=== PATIENT | female | born 1950 | race African-American/Black ===

== ENCOUNTER 2019-11-11 12:02 | Inpatient (IN) | payer OTHER ==
[2019-10-29 09:56] VITALS: BMI 37.0
[2019-12-02] MEDS ORDERED: CELECOXIB 200 MG CAPSULE PO ONE (06:20)
[2019-12-02] MEDS ORDERED: CEFAZOLIN 3 GM in DEXTROSE 5%-WATER - 100 ML IVPB ONE (06:20)
[2019-12-02] MEDS ORDERED: VANCOMYCIN 1,000 MG VIAL (RESTRICTED TO ID ONLY) ONE (07:12)
[2019-12-02] MEDS ORDERED: ceFAZolin SODIUM 1 GM VIAL ONE ×4 (07:12→23:31)
[2019-12-02] MEDS ORDERED: EPHEDRINE SULFATE/0.9% NACL/PF 50 MG/10 ML SYRINGE NR ONE (07:15)
[2019-12-02] MEDS ORDERED: SODIUM CHLORIDE 0.9% P/F 10 ML VIAL IJ ONE ×2 (07:15→07:16)
[2019-12-02] MEDS ORDERED: LIDOCAINE HCL/PF 2% SDV 5ML VIAL ONE (07:15)
[2019-12-02] MEDS ORDERED: PROPOFOL 20 ML ONE ×2 (07:15)
[2019-12-02] MEDS ORDERED: SUCCINYLCHOLINE CHLORIDE 200 MG/10 ML SYRINGE ONE (07:15)
[2019-12-02] MEDS ORDERED: MIDAZOLAM HCL 2 MG/2 ML SINGLE DOSE VIAL ONE ×2 (07:16)
[2019-12-02] MEDS ORDERED: ALBUTEROL SO4 HFA INHALER IH PRN (07:54)
[2019-12-02] MEDS ORDERED: MAGNESIUM HYDROX 2400MG/30ML ORAL SUSPENSION 30 ML CUP PO PRN (07:54)
[2019-12-02] MEDS ORDERED: MAG HYDROX/AL HYDROX/SIMETH 30 ML UNIT-DOSE CUP PO PRN (07:54)
--- NOTE | 2019-12-02 07:56 | HP ---
Satellite [facility] - Chief Complaint Chief Complaint: right knee pain - Past Medical History Allergies/Adverse Reactions: Allergies Allergy/AdvReac Type Severity Reaction Status Date / Time shellfish derived Allergy Severe Hives Verified 10/29/19 10:02 cyclobenzaprine AdvReac Severe PARANOIA Verified 10/29/19 10:02 [From Flexeril] - Current Medications Current Medications: Home Medications Medication Instructions Recorded Aspirin [ASA -] 81 mg PO DAILY 03/17/12 Rosuvastatin Calcium [Crestor] 20 mg PO HS 03/17/12 Albuterol Sulfate Inhaler - 1 - 2 inh PO QID PRN 10/29/19 [Ventolin Hfa Inhaler -] Cholecalciferol (Vitamin D3) 2,000 unit PO HS 10/29/19 [Vitamin D3] Metoprolol Succinate 50 mg PO DAILY 10/29/19 Quinapril HCl [Accupril] 5 mg PO DAILY 10/29/19 Ranitidine HCl 150 mg PO HS 10/29/19 Satellite Physical Exam - Physical Examination Vital Signs: Vital Signs Period Temp Pulse Resp BP Sys/David Pulse Ox Last 24 Hr 98.8 F 79 18 135/87 95 General Appearance: Well Nourished, Well Developed, Alert & Oriented x3 ENT: Clear Lung: Normal air movement Extremities: Other (right knee- + swelling, + ttp, decr rom , nvi) Neurological: Intact, Alert, Oriented Satellite Impression/Plan - Impression/Plan Impression: right knee djd Operative Procedure: right nalini tkr Date to be Performed: 12/02/19
[2019-12-02] MEDS ORDERED: TRANEXAMIC ACID 1000 MG/10 ML VIAL IVPUSH ONE (08:00)
[2019-12-02] MEDS ORDERED: LACTATED RINGERS SOLUTION 1,000 ML IV SCH (08:00)
[2019-12-02] MEDS ORDERED: oxyCODONE HCL 5 MG TABLET PO PRN ×2 (08:20)
[2019-12-02] MEDS ORDERED: ONDANSETRON 4 MG/2 ML VIAL IVPUSH PRN (08:20)
[2019-12-02] MEDS ORDERED: traMADol HCL 50 MG TABLET PO PRN (08:20)
[2019-12-02] MEDS ORDERED: VANCOMYCIN 1,000 MG VIAL (RESTRICTED TO ID ONLY) IVPB ONE (09:44)
--- NOTE | 2019-12-02 09:51 | OP ---
Operative Note - Note: Operative Date: 12/02/19 (kierra) Pre-Operative Diagnosis: right knee djd Operation: right nalini tkr Post-Operative Diagnosis: Same as Pre-op Surgeon: Keyon Siddiqui Business Manager [employer]: [employer] Anesthesia: Spinal, Local Specimens Removed: bone fragments Estimated Blood Loss (mls): 150
[2019-12-02] MEDS: ACETAMINOPHEN 1000 MG/100 ML VIAL (NON FORMULARY) IVPB ONE ×2 (10:45→17:37)
[2019-12-02] MEDS ORDERED: ACETAMINOPHEN INJECTION 100 ML IVPB ONE (10:48)
[2019-12-02] MEDS: ONDANSETRON 4 MG/2 ML VIAL IVPUSH PRN (11:20)
--- NOTE | 2019-12-02 17:11 | SPEC ---
DATE OF OPERATION: 12/02/2019 PREOPERATIVE DIAGNOSIS: Degenerative joint disease, right knee. POSTOPERATIVE DIAGNOSIS: Degenerative joint disease, right knee. PROCEDURE: Right total knee replacement with robotic-assisted navigation (Makoplasty). SURGICAL ATTENDING: Keyon Siddiqui MD. OBGYN HOSPITALIST PHYSICIAN: CECI Gorman. ANESTHESIA: Regional and spinal. CLOSURE: A Triathlon knee system with a 5 femur, 4 tibia, 9 polyethylene, 32 patella, number 1 Vicryl fascia, 0 and 2-0 subcutaneous, 3-0 Monocryl subcuticular with skin glue for skin, 4-0 undyed Vicryl for pin site. ESTIMATED BLOOD LOSS: Less than 100 mL. COMPLICATIONS: None. CONDITION: To recovery room in stable condition. DESCRIPTION OF OPERATIVE PROCEDURE: Patient was taken to the operating room on December 02, 2019. Regional and general anesthesia was administered by the anesthesiologist. IV Kefzol and TXA were administered by the anesthesiologist. Well-padded pneumatic tourniquet was placed on the proximal thigh. The right lower extremity was prepped and draped in the usual sterile fashion. The leg was exsanguinated with an Esmarch bandage, and tourniquet was inflated to 275 mmHg. A 12 to 15-cm longitudinal midline incision was incised while centered over the patella. The dissection was carried down to the level of the extensor mechanism with sufficient flaps made to adequately perform the procedure. A medial parapatellar arthrotomy was then performed. We made a cuff of tissue on the patella for later closure. The patella was inverted, the knee was flexed up. The fat pad was excised. The subperiosteal dissection was on the anteromedial proximal tibia around towards the direction of the MCL. The ACL and the PCL were transected and debrided. The meniscal remnants of the medial and lateral meniscus were debrided and removed. This allowed the knee to be able to "be brought forward." The checkpoints were malleted into the tibia and into the femur. Two threaded pins were drilled anteroposteriorly proximal to the knee through the previous incision, through the anterior cortex, then just engaging the posterior cortex. To these pins was assembled the femoral navigation array. One handbreadth below the tibial tubercle, 2 stab incisions were used to drill 2 threaded pins in parallel fashion into the tibia, again through the anterior cortex and just engaging the posterior cortex. To these pins was fastened the tibial arrays. The knee was then registered with the navigation device with center of rotation of the hip, medial and lateral malleoli, both checkpoints, and multiple points on both the femur and the tibia to ensure excellent registration. The navigation device was directed off the "top of the bubbles" on both the femur and the tibia. The navigation passed within less than 0.5 mm to plan. The knee was then thoroughly inspected to remove all osteophytes both medially, laterally, and on the femur and the tibia, and whatever osteophytes were available for dissection. The knee was then taken to extension and to flexion, and stressed in both varus and valgus to assess flexion gaps. The virtual position of the components on the navigation device were then manipulated to optimize the position and to ensure equal gaps in both flexion and extension, and both medially and laterally. The robot was then brought into the field and was registered. The cuts were then made both on the femur and on the tibia as to plan. All osteophytes posteriorly were then removed as well. The gaps were then measured again in flexion and extension to be equal in both flexion and extension and medial and laterally. The femoral notch was then made, as we were doing a posterior stabilizing component, with the appropriate sized box. Trial reduction of the femur achieved excellent [id number] fit. A tibial baseplate of appropriate polyethylene thickness was "floated in the knee." It was ensured to be in the excellent position by navigation devices and was pinned in place. The knee was taken through a range of motion, and found to have excellent stability throughout flexion and extension. The patella was calibrated for thickness and osteotomized down to the appropriate level. The appropriate lollipop was used to drill the lugholes in the patella and the trial button was applied. The knee was taken through a range of motion and found to have excellent tracking of the patella, and patella from full extension to full flexion. Trial components were removed, the keel was punched and drilled, and a sclerotic bone on the tibia was drilled to help with cement interdigitation. The knee was thoroughly irrigated with the pulse antibiotic surplus property disposal agent. The real components were then cemented in using monitored arrangement cement techniques with antibiotic cement, and pressurization and extension. After the cement was hardened, the knee was thoroughly inspected to remove any extra cement. The real polyethylene component was then clipped into place. Range of motion, stability, and tracking were as described earlier. The checkpoints and the pins were removed. The knee was thoroughly irrigated with antibiotic irrigation. Vancomycin powder was placed into the knee for antibiotic prophylaxis. The medial parapatellar arthrotomy was then closed using number 1 Vicryl interrupted suture. After closure of the deep layer, the knee was taken through a range of motion, and found to have excellent stability of the patella with no dislocation and no undue tension on the repair. The subcutaneous was pulse antibiotic irrigated, and was then closed with 2-0 Vicryl, 3-0 Monocryl subcuticular with the skin glue for the skin. The distal tibial pin site was irrigated thoroughly as well and then closed with 4-0 undyed Vicryl. A sterile Aquacel dressing was applied, followed by a Whitfield dressing. Tourniquet was deflated. Total tourniquet time was approximately 75 minutes. No complications. Patient was awakened from anesthesia and transferred to recovery room in stable condition. Postoperative x-rays revealed excellent position of the components. Alcon [id number]
[2019-12-02] MEDS: LACTATED RINGERS SOLUTION 1,000 ML IV SCH (17:37)
[2019-12-02] MEDS: QUINAPRIL HCL 5 MG TABLET (FP) PO SCH (17:37)
[2019-12-02] MEDS: oxyCODONE HCL 10 MG SUSTAINED ACTING TABLET PO SCH ×2 (17:38→21:37)
[2019-12-02] MEDS: SENNOSIDES/DOCUSATE COMBO (SENNA PLUS) TABLET (UD) PO SCH ×2 (17:38→21:37)
[2019-12-02] MEDS: MULTIVITAMINS (DAILY MVI) TABLET (FP) PO SCH (17:38)
[2019-12-02] MEDS: PANTOPRAZOLE 40 MG TABLET PO SCH (17:38)
[2019-12-02] MEDS ORDERED: DEXTROSE 5%-WATER 100 ML IVPB ONE ×2 (17:40→23:31)
[2019-12-02] MEDS: CEFAZOLIN 3 GM in DEXTROSE 5%-WATER 100 ML IVPB SCH ×2 (17:45→23:36)
[2019-12-02] MEDS: ACETAMINOPHEN 325 MG TABLET (FP) PO SCH ×2 (18:32→23:37)
[2019-12-02] MEDS: ROSUVASTATIN CA 20 MG TABLET (FP) PO SCH (21:37)
[2019-12-02] MEDS ORDERED: PATIENT'S OWN MEDICATION (NON-FORMULARY) (Ranitidine Hcl [Ranitidine Hcl] 150 MG) PO SCH (22:00)
[2019-12-03] MEDS: ACETAMINOPHEN 325 MG TABLET (FP) PO SCH ×4 (06:52→23:05)
[2019-12-03 08:04] LABS: HEMATOCRIT 37.2 % (32.4-45.2); MCH 31.4 pg (25.7-33.7); MCHC 32.2 g/dl (32.0-36.0); MEAN CELL VOLUME 97.5 fl (80-96); MEAN PLT VOLUME 7.8 fl (7.5-11.1); PLATELET COUNT 208 K/MM3 (134-434); RBC 3.82 M/mm3 (3.60-5.2); RDW 14.1 % (11.6-15.6); WHITE BLOOD COUNT 8.9 K/mm3 (4.0-10.8)
[2019-12-03] MEDS: ASPIRIN 325 MG TABLET PO SCH (08:37)
[2019-12-03] MEDS: LACTATED RINGERS SOLUTION 1,000 ML IV SCH (09:21)
[2019-12-03] MEDS: MULTIVITAMINS (DAILY MVI) TABLET (FP) PO SCH (09:22)
[2019-12-03] MEDS: PANTOPRAZOLE 40 MG TABLET PO SCH (09:22)
[2019-12-03] MEDS: QUINAPRIL HCL 5 MG TABLET (FP) PO SCH (09:22)
[2019-12-03] MEDS: oxyCODONE HCL 10 MG SUSTAINED ACTING TABLET PO SCH ×2 (09:23→22:54)
[2019-12-03] MEDS: SENNOSIDES/DOCUSATE COMBO (SENNA PLUS) TABLET (UD) PO SCH ×2 (09:23→22:55)
--- NOTE | 2019-12-03 09:52 | PN ---
Progress Note (short form) - Note Progress Note: Ortho Pt seen and examined s/p right nalini tkr pod #1 Selected Entries 12/03/19 09:20 Temperature 98.9 F Pulse Rate 83 Respiratory 18 Rate Blood Pressure 108/65 Laboratory Tests 12/03/19 07:22 WBC 8.9 Hgb 12.0 Hct 37.2 Plt Count 208 dressing c/d/i, rom 0-40, calf soft, nt nvi a/p PT dvt ppx pain control d/c home today f/u in 1 week
--- NOTE | 2019-12-03 11:42 | PN ---
Progress Note (short form) - Note Progress Note: 69F POD1 s/p R TKR under spinal anesthetic with peripheral nerve blocks. PT states that pain is well controlled and reports no anesthetic complications. AVSS. Continue current regimen.
[2019-12-03] MEDS: ONDANSETRON 4 MG/2 ML VIAL IVPUSH PRN (14:37)
[2019-12-03] MEDS: ROSUVASTATIN CA 20 MG TABLET (FP) PO SCH (22:55)
[2019-12-04] MEDS: ACETAMINOPHEN 325 MG TABLET (FP) PO SCH (05:41)
[2019-12-04 08:06] LABS: HEMATOCRIT 34.2 % (32.4-45.2); HEMOGLOBIN 11.1 GM/dl (10.7-15.3); MCH 31.5 pg (25.7-33.7); MCHC 32.6 g/dl (32.0-36.0); MEAN CELL VOLUME 96.6 fl (80-96); MEAN PLT VOLUME 7.8 fl (7.5-11.1); PLATELET COUNT 198 K/MM3 (134-434); RBC 3.54 M/mm3 (3.60-5.2); RDW 14.2 % (11.6-15.6); WHITE BLOOD COUNT 9.8 K/mm3 (4.0-10.8)
--- NOTE | 2019-12-04 08:10 | PN ---
Progress Note (short form) - Note Progress Note: Ortho Pt seen and examined s/p right nalini tkr pod #2. No complaints Selected Entries 12/04/19 06:33 Temperature 98.6 F Pulse Rate 118 H Respiratory 18 Rate Blood Pressure 103/61 Laboratory Tests 12/04/19 07:19 WBC Pending Hgb Pending Hct Pending Plt Count Pending dressing c/d/i, rom 0-50, calf soft, nt nvi a/p PT dvt ppx pain control d/c home today f/u in 1 week
--- NOTE | 2019-12-04 08:11 | DS ---
Physical Examination Vital Signs: Vital Signs Temperature 98.6 F 12/04/19 06:33 Pulse Rate 118 H 12/04/19 06:33 Respiratory Rate 18 12/04/19 06:33 Blood Pressure 103/61 12/04/19 06:33 O2 Sat by Pulse Oximetry (%) 97 12/04/19 07:02 Discharge Summary Problems reviewed: Yes Reason For Visit: OSTEOARTHRITIS Procedures: Principal: right tkr Hospital Course: admitted for elective right nalini tkr, post-op per protocol, stable for d/c Condition: Good - Instructions Diet, Activity, Other Instructions: Post-op Instructions-Total Knee Replacement Call the office for a follow-up appointment in 1 week - [phone] Aspirin 325mg daily for 6 weeks. Pain medication was sent into your pharmacy. Apply Graduated Compression Stockings (TEDs) to both lower extremities- remove daily for hygiene ONLY Apply Sequential Compression Device (SCDs) to both Lower extremities remove for PT and hygiene ONLY Apply cold packs to affected area for 15 minutes every 2 hours. Physical Therapist will come to your home for the first 5 days. You will be set up with outpatient PT at your first post-operative visit. Patient may ambulate as tolerated-encourage self care (at least every 2-3 hours while awake) with walker or cane Maintain Aquacel (waterproof) dressing to operative wound (will be removed by surgeon at first office visit) Shower with Aquacel dressing in place-if Aquacel integrity compromised, remove and apply dry sterile dressing and notify Orthopedist. DO NOT SHOWER unless Orthopedists approves without Aquacel dressing CONTACT THE OFFICE FOR ANY CHANGE IN YOUR CONDITION (for example-fever greater than 102 degrees, excessive bleeding from operative site, purulent drainage, severe swelling or pain) GO TO THE EMERGENCY ROOM IF THERE IS A M EDICAL EMERGENCY Knee Precautions: * Keep a rolled towel under affected heel while in bed or chair (to keep knee in extension) * Keep affected leg elevated except during mealtimes * DO NOT PLACE PILLOW UNDER AFFECTED KNEE * If you have any questions, please do not hesitate to call the office - [phone]. Referrals: Keyon Siddiqui MD [Staff Physician] - Disposition: VNS/HOME HEALTH CARE - Home Medications Comprehensive Discharge Medication List: Ambulatory Orders Aspirin [ASA -] 81 mg PO DAILY 03/17/12 Rosuvastatin Calcium [Crestor] 20 mg PO HS 03/17/12 Albuterol Sulfate Inhaler - [Ventolin HFA Inhaler -] 1 - 2 inh PO QID PRN 10/29/19 Cholecalciferol (Vitamin D3) [Vitamin D3] 2,000 unit PO HS 10/29/19 Metoprolol Succinate 50 mg PO DAILY 10/29/19 Quinapril HCl [Accupril -] 5 mg PO DAILY 10/29/19 Ranitidine HCl 150 mg PO HS 10/29/19 Aspirin [ASA -] 325 mg PO DAILY@0800 tablet 12/02/19 Oxycodone HCl/Acetaminophen [Percocet 5-325 mg Tablet -] 1 - 2 tab PO Q6H #50 tab MDD 8 12/02/19
[2019-12-04] MEDS: ASPIRIN 325 MG TABLET PO SCH (08:16)
[2019-12-04] MEDS: oxyCODONE HCL 10 MG SUSTAINED ACTING TABLET PO SCH (09:04)
[2019-12-04] MEDS: QUINAPRIL HCL 5 MG TABLET (FP) PO SCH (09:04)
[2019-12-04] MEDS: PANTOPRAZOLE 40 MG TABLET PO SCH (09:05)
[2019-12-04] MEDS: SENNOSIDES/DOCUSATE COMBO (SENNA PLUS) TABLET (UD) PO SCH (09:05)
[2019-12-04] MEDS: MULTIVITAMINS (DAILY MVI) TABLET (FP) PO SCH (09:05)
[2019-12-04 09:41] VITALS: BP 96/54; PULSE 97; TEMP 98.9
--- NOTE | 2019-12-08 17:28 | PATH ---
Surgical Pathology Report Patient Name: SEVEN CUELLAR Med. Rec. #: [id number] /Age/Gender: 1950 (Age: 69) / F Account: [id number] Location: [facility] Taken: 12/02/2019 Received: 12/02/2019 Reported: 12/08/2019 Physicians: Keyon Siddiqui M.D. Specimen(s) Received RIGHT KNEE BONES Clinical History Osteoarthritis right knee Final Diagnosis KNEE BONES, RIGHT, TOTAL KNEE REPLACEMENT: DEGENERATIVE JOINT DISEASE. Electronically Signed Antonia Aguirre M.D. Gross Description Received in formalin labeled "right knee bones," is a 12.5 x 11.0 x 2.0 cm aggregate of baldwin-yellow, irregular portions of bone and soft tissue, consistent with knee bones. The articular surfaces are baldwin-brown and diffusely granular. The underlying trabecular bone is yellow and hard. No areas of eburnation are identified. Pillowcase Maker sections are submitted in one cassette, following decalcification. 12/04/2019 [facility]12/04/2019
== END 2019-12-04 11:26 | disposition home health service (06) | DRG 470 ==
LOC: FM/S 12-02 06:06
PROVIDERS: ADMIT Orthopaedic Surgery; ATTEND Orthopaedic Surgery
PROC: 8E0Y0CZ Robotic Assisted Procedure of Lower Extremity, Open Approach (ICD-10-PCS; 2019-12-02)
PROC: 0SRC0J9 Replacement of Right Knee Joint with Synthetic Substitute, Cemented, Open Approach (ICD-10-PCS; principal; 2019-12-02 08:28)
DX: M17.11 Unilateral primary osteoarthritis, right knee (principal)
CPT/HCPCS: 36415; 73560-TC-RT-FY; 85027; 88304-TC; 88311-TC; 94760; 97010-GP; 97116-GP; 97163-GP; J0131

== ENCOUNTER 2021-09-06 09:31 | Emergency (ER) | payer OTHER ==
[2021-09-06 09:36] VITALS: BP 160/83; PULSE 68; TEMP 98.1; BMI 36.3
[2021-09-06] MEDS ORDERED: LIDOCAINE 5% TOPICAL PATCH TP ONE (10:27)
[2021-09-06] MEDS ORDERED: ACETAMINOPHEN 1000 MG/100 ML BAG IVPB ONE (10:27)
[2021-09-06] MEDS ORDERED: ACETAMINOPHEN INJECTION 100 ML IVPB ONE (11:43)
[2021-09-06] MEDS ORDERED: LIDOCAINE 5% TOPICAL PATCH ONE (11:44)
[2021-09-06 12:29] LABS: BASO % 0.6 % (0-2.0); EOS % 2.9 % (0-4.5); HEMATOCRIT 37.1 % (32.4-45.2); HEMOGLOBIN 12.4 GM/dL (10.7-15.3); LYMPH % 44.3 % (8-40); MCH 30.7 pg (25.7-33.7); MCHC 33.5 g/dl (32.0-36.0); MEAN CELL VOLUME 91.6 fl (80-96); MEAN PLT VOLUME 7.2 fl (7.5-11.1); MONO % 9.4 % (3.8-10.2); NEUT % 42.8 % (42.8-82.8); PLATELET COUNT 232 10^3/uL (134-434); RBC 4.05 M/mm3 (3.60-5.2); RDW 14.1 % (11.6-15.6); WHITE BLOOD COUNT 5.9 K/mm3 (4.0-10.0)
[2021-09-06 12:47] LABS: ACTIVATED PTT 31.9 SECONDS (25.2-36.5); INR 1.03 (0.83-1.09); PROTHROMBIN TIME (PATIENT) 11.9 SEC (9.7-13.0)
[2021-09-06 12:54] LABS: CALCIUM 8.9 mg/dL (8.5-10.1)
[2021-09-06 12:55] LABS: ALBUMIN 3.7 g/dl (3.4-5.0); BLOOD UREA NITROGEN 15.8 mg/dL (7-18)
[2021-09-06 12:58] LABS: CREATININE 1.1 mg/dL (0.55-1.3)
[2021-09-06 12:59] LABS: BILIRUBIN,TOTAL 0.3 mg/dL (0.2-1); TOT PROT 7.6 g/dl (6.4-8.2)
[2021-09-06] MEDS ORDERED: LIDOCAINE PATCH REMOVAL MC SCH (22:00)
== END 2021-09-06 16:40 | disposition home or self-care (01) ==
LOC: JER 09:31
PROC: 3E0333Z Introduction of Anti-inflammatory into Peripheral Vein, Percutaneous Approach (ICD-10-PCS; principal; 2021-09-06)
DX: M54.6 Pain in thoracic spine (principal); I10 Essential (primary) hypertension
CPT/HCPCS: 36415; 71045-TC-FY; 80053; 84484; 85025; 85610; 85730; 93005; 93010; 99285-25

== ENCOUNTER → 2021-10-06 | Day surgery (SDC) | payer OTHER | END | disposition home or self-care (01) | LOC: FMAMMOTONE 14:09 | PROVIDERS: ATTEND Surgery | PROC: 0HBT3ZX Excision of Right Breast, Percutaneous Approach, Diagnostic (ICD-10-PCS; principal; 2021-10-06) | DX: D05.11 Intraductal carcinoma in situ of right breast (principal); N64.1 Fat necrosis of breast; R92.0 Mammographic microcalcification found on diagnostic imaging of breast | CPT/HCPCS: 19081; 76098-TC-FY; 87899; 88305-TC; 88342-TC; A4648 ==

== ENCOUNTER 2023-05-18 13:32 | Emergency (ER) | payer OTHER ==
[2023-05-18 13:52] VITALS: BP 120/57; PULSE 79; RESP 18; TEMP 98.4; BMI 36.5
[2023-05-18] MEDS ORDERED: LIDOCAINE HCL 1%, 10 MG/ML (20ML VIAL) ONE (15:03)
[2023-05-18] MEDS ORDERED: LIDOCAINE HCL 1%, 10 MG/ML (50 mL VIAL) SQ ONE (15:04)
[2023-05-18] MEDS ORDERED: CLINDAMYCIN HCL 300 MG CAPSULE PO ONE (15:29)
[2023-05-18] MEDS ORDERED: CLINDAMYCIN HCL 150 MG CAPSULE (FP) ONE (15:39)
== END 2023-05-18 15:43 | disposition home or self-care (01) ==
LOC: JERFT 13:32
PROC: 0H9CXZZ Drainage of Left Upper Arm Skin, External Approach (ICD-10-PCS; principal; 2023-05-18)
DX: L02.412 Cutaneous abscess of left axilla (principal)
CPT/HCPCS: 87070; 87205; 99283-25